=== PATIENT | male | born 1975 | race Hispanic/Latino ===

== ENCOUNTER 2022-05-26 14:16 | Emergency (ER) | payer SELFPAY ==
--- OUTSIDE RECORDS SUMMARY | 2022-05-26 14:18 | XMS REPORT | Continuity of Care Document ---
:1975 Author Organization [facility] t Address [address] [place] [address] Care Team Providers Name Role Phone Pcp, Patient Does Not Have A Primary Care Physician +[id number] Nurse, [facility] Attending Clinician Unavailable Melina Cervantes MD Attending Clinician MELINA CERVANTES Attending Clinician Unavailable Problems This patient has no known problems. Allergies, Adverse Reactions, Alerts Allergy Allergy Status Severity Reaction(s) Onset Inactive Treating Comm ents Source Name Type Date Date Clinician NO KNOWN Drug Active Univers ALLERGIE Class [facility] Social History Social Habit Start Date Stop Date Quantity Comments Source Exposure to 2022-05-16 2022-05-26 Not sure [facility] SARS-CoV-2 (event) 00:00:00 13:37:00 Medica l Branch Sex Assigned At [birth year] [facility] [place] 00:00:00 00:00:00 Medical [place] Smoking Status Start Date Stop Date Source Tobacco smoking consumption [facility] Medications This patient has no known medications. Immunizations Ordered Filled Immunization Date Status Comments Sour e Immunization Name Name SARS-COV-2 COVID-19 2020-09-21 Completed Unive rsity of PFIZER VACCINE 00:00:00 [facility] SARS-COV-2 COVID-19 2020-08-31 Completed Unive rsity of PFIZER VACCINE 00:00:00 [facility] Vital Signs Vital Name Observation Time Observation Value Comments Source Diastolic blood 2022-05-26 19:45:00 87 mm[Hg] Unive rsity of pressure [facility] Heart rate 2022-05-26 19:45:00 83 /[facility] Body temperature 2022-05-26 19:45:00 37.06 Yudelka [facility] Respiratory rate 2022-05-26 19:45:00 18 /min [facility] Oxygen saturation in 2022-05-26 19:45:00 100 /min [facility] Arterial blood by [facility] Pulse oximetry [place] Systolic blood 2022-05-26 19:45:00 133 mm[Hg] Univer sity of pressure [facility] Procedures This patient has no known procedures. Encounters Start End Encounter Admission Attending Care Care Encounter Source Date/Time Date/Time Type Type Clinicians Facility Department ID 2022-05-26 2022-05-26 Nurse [facility] [id number] [facility] 14:00:00 14:20:00 Visit Melina Cervantes [facility] [id number] [facility] [id number] Joseph as SAM?BLEA [id number] [address] MEDICAL OFFICE BUILDING 2022-05-26 2022-05-26 Outpatient R [facility] [id number] [facility] 14:00:00 14:00:00 MELINA garcia [facility] Results This patient has no known results.
[2022-05-26 15:13] LABS: Absolute Lymphocytes (CBC) 2.7 K/uL (0.7-4.9); Hematocrit 51.7 % (39.6-49.0); Lymphocytes % 31.4 % (15.3-44.8); MCV 90.5 fL (80-100); MPV 9.7 fL (7.6-11.3); RBC Red Blood Cell Count 5.71 M/uL (4.33-5.43)
[2022-05-26 15:40] LABS: Potassium 4.5 mmol/L (3.5-5.1)
--- NOTE | 2022-05-26 16:01 | RAD REPORT ---
EXAM DESCRIPTION: RAD - Hand Left 3 View - 05/26/2022 3:53 pm CLINICAL HISTORY: Pain COMPARISON: No comparisons FINDINGS/IMPRESSION: Presumably subacute or remote fracture of the fourth distal phalanx. Soft tissu e swelling is present at the fourth distal phalanx. Small radiopaque densities within the soft tissue s may represent small bony fragments. No convincing evidence of retained foreign body.
[2022-05-26] MEDS ORDERED: CEFAZOLIN SODIUM 1 GM/VIAL ONE (17:28)
[2022-05-26] MEDS ORDERED: NA CHLORIDE 0.9% 250 ML ONE (17:28)
[2022-05-26] MEDS ORDERED: SMZ./TMP. 800/160 MG TABLET ONE (17:28)
[2022-05-26] MEDS ORDERED: HYDROCODONE/APAP 10/325 TAB ONE (17:28)
[2022-05-26] MEDS ORDERED: SILVER SULFADIAZINE 1% 25 GM TOP ONE (17:32)
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
[2022-05-26 19:34] VITALS: TEMP 98.4
[2022-05-26 19:38] VITALS: BP 117/71; O2SAT 95
== END 2022-05-26 19:31 | disposition home or self-care (01) ==
LOC: ER 14:16
DX: S62.635G Displaced fracture of distal phalanx of left ring finger, subsequent encounter for fracture with delayed healing (principal); L08.9 Local infection of the skin and subcutaneous tissue, unspecified; F17.210 Nicotine dependence, cigarettes, uncomplicated
CPT/HCPCS: 36415; 80048; 85025; 87040; 96374; 99284; J0690; J7050